=== PATIENT | male | born 1990 | race Caucasian/White ===

== ENCOUNTER 2017-12-28 12:07 | Emergency (ER) | payer MEDICAID ==
[~2017-12-28] VITALS: Ht 170.2 cm; Wt 65.0 kg
[2017-12-28] MEDS ORDERED: IBUPROFEN 600MG TABLET PO ONE (12:45)
[2017-12-28] MEDS ORDERED: LORAZEPAM 2MG/ML CPJ IM ONE (14:45)
[2017-12-28] MEDS ORDERED: ZIPRASIDONE MESYLATE 20MG/VIAL IM ONE (14:45)
[2017-12-28] MEDS ORDERED: OLANZAPINE 10MG TABLET ODT PO ONE (15:30)
[2017-12-28] MEDS ORDERED: LORAZEPAM 1MG TABLET PO ONE (15:30)
[2017-12-28 15:31] LABS: BASOPHILS % 0.3 % (0.0-2.0); EOSINOPHILS % 0.1 % (0.0-5.0); HEMATOCRIT. 41.8 % (42.0-52.0); HEMOGLOBIN. 14.4 g/dL (14.0-18.0); LYMPHOCYTES % 26.1 % (20.0-50.0); MEAN CORPUSCULAR HEMOGLOBIN 29.4 pg (28.0-32.0); MEAN CORPUSCULAR VOLUME 85.1 fL (80.0-94.0); MEAN PLATELET VOLUME 8.7 fl (7.4-10.4); MONOCYTES % 7.9 % (2.0-8.0); NEUTROPHILS % 65.6 % (40.0-76.0); PLATELET 209 x1000/uL (130-400); RED BLOOD CELL COUNT 4.91 mill/uL (4.7-6.1); RED CELL DISTRIBUTION WIDTH 13.9 % (11.6-14.6)
[2017-12-28 15:40] LABS: CHLORIDE 106 mEq/L (98-107)
[2017-12-28 15:46] LABS: ETHANOL BLOOD < 10 mg/dL
[2017-12-28 16:55] LABS: *BARBITURATES SCREEN URINE NEGATIVE (NEGATIVE); *BENZODIAZEPINES SCREEN URINE NEGATIVE (NEGATIVE); *COCAINE SCREEN URINE NEGATIVE (NEGATIVE); CANNABINOID URINE SCREEN PRESUMTIVE POSITIVE (NEGATIVE); METHADONE URINE SCREEN NEGATIVE (NEGATIVE); OPIATES URINE SCREEN NEGATIVE (NEGATIVE); PHENCYCLIDINE URINE SCREEN NEGATIVE (NEGATIVE)
[2017-12-28 16:56] LABS: *AMPHETAMINES SCREEN URINE NEGATIVE (NEGATIVE)
[2017-12-28 19:00] VITALS: BP 125/73
== END 2017-12-28 19:04 | disposition home or self-care (01) ==
LOC: ER 12:28
DX: M54.5 Low back pain (principal); F41.9 Anxiety disorder, unspecified; F12.10 Cannabis abuse, uncomplicated; E87.6 Hypokalemia; E86.0 Dehydration; F17.290 Nicotine dependence, other tobacco product, uncomplicated
CPT/HCPCS: 36415; 80053; 80305; 80307; 80329; 84443; 85025; 93005; 99285; 99406; G0482; J3486; Z7610; J2060